=== PATIENT | male | born 1975 ===

== ENCOUNTER 2017-01-04 19:20 | Emergency (ER) | payer MEDICAID ==
[~2017-01-04 19:20] MED LIST: FIORICET 50-301 EAC1 PO; NO HOME MEDICATION XX
== END 2017-01-04 20:22 ==
LOC: EDMED 19:20
DX: R51 Headache (principal); F17.210 Nicotine dependence, cigarettes, uncomplicated
CPT/HCPCS: J1200; J1885; J2060; J2405; J7030